=== PATIENT | male | born 1965 | race Two or more races ===

== ENCOUNTER 2024-11-13 09:58 | Outpatient (CLI) | payer OTHER, SELFPAY ==
--- OUTSIDE RECORDS SUMMARY | 2024-09-22 14:00 | XMS_ITS | Encounter Summary ---
[facility] Organization [facility] Address [address] [place] [address] Care Team Providers Care Gericare Aide Teacher Name Role Phone Denzel Barton MD Primary Care Provider [phone] Reason for Visit * Reason Comments Establish Care Had physical at [facility] a couple months ago. Encounter Details Date Type Department Care Team (Late st Contact Info) Description 09/22/2024 2:00 PM EDT Office Visit [facility] [address] [place] [address] [place] [id number] Denzel Barton MD [address] [place] [address] [place] [address] Class 1 obesity due to excess calories without serious comorbidity with body mass index (BMI) of 34.0 to 34.9 in adult (Primary Dx); Mixed hyperlipidemia; Essential hypertension; History of elevated PSA; Family history of colon cancer Social History Tobacco Use Types Packs/Day Years Used Date Smoking Tobacco: Never Smokeless Tobacco: Never Tobacco Cessation:Counseling Given: Not Answered Alcohol Use Standard Drinks/Week Comments Never 0 (1 standard drink = 0.6 oz pur e alcohol) PHQ-2 Answer Date Recorded Patient Health Questionnaire-2 Score 0 09/22/2024 Sex and Gender Information Value Date Recorded Sex Assigned at Male 10/18/2024 2:36 PM EDT Legal Sex Male 12:04 PM EDT Gender Identity Not on file Sexual Orientation Not on file documented as of this encounter Last Filed Vital Signs Vital Sign Reading Time Taken Comments Blood Pressure 120/78 09/22/2024 2:01 PM EDT Pulse 70 09/22/2024 1:45 PM EDT Temperature 37.3 C (99.1 F) 09/22/2024 1:45 PM EDT Respiratory Rate 18 09/22/2024 1:45 PM EDT Oxygen Saturation 97% 09/22/2024 1:45 PM EDT Inhaled Oxygen Concentration - - Weight 98.9 kg (218 lb) 09/22/2024 1:45 PM EDT Height 170.2 cm (5' 7 ) 09/22/2024 1:45 PM EDT Body Mass Index 34.14 09/22/2024 1:45 PM EDT documented in this encounter Functional Status documented as of this encounter Progress Notes * Denzel Barton MD - 09/22/2024 3:50 PM EDTAssociated Problem(s): Mixed hyperlipidemia I do not have previous records to verify but reported somewhat longstanding hyperlipidemia for which she is taking Crestor 20 mg daily with good tolerability. He reports last cholesterol sometime in early spring 2024 was good but we do not have the results. We request records from previous providerto verify details. Continue healthy diet, exercise and weight loss which she is currently pursuing.Monitor cholesterol at minimum yearly * Denzel Barton MD - 09/22/2024 3:50 PM EDTAssociated Problem(s): History of prostate cancer Patient reports a history of elevated PSA, he does not remember the details but it sounds like he had a biopsy with some radiation therapy in the last few years as of 09/22/2024, and has had multiple PSAs obtained subsequently which showed undetectable result. Clarify with retrieve old records when he would be due for follow-up likely with urology which would be typically yearly * Denzel Barton MD - 09/22/2024 3:48 PM EDTAssociated Problem(s): Family history of colon cancer Report family history of colon cancer in 2 paternal uncles, each in their early 40s. As such it sounds like the patient has had 2 colonoscopies with the most recent reported approximate 2022 which was negative, he is unsure what specific follow-up we will request records to verify but I would not expect based on family history but expect a follow-up in 3 to 5-year timeframe. Of note no bowel concerns. * Denzel Barton MD - 09/22/2024 3:46 PM EDTAssociated Problem(s): Essential hypertension Longstanding use of losartan/HCTZ 50/12.5 mg daily from previous physician, with reported normal electrolytes with blood work as obtained in the last couple months in early spring 2024, while he was at his previous primary provider, Dr. Jose Rafael Barreto in [facility]. No previous records to compare but will clarify and if never EKG obtained at next visit we will plan to obtain at that time. Nonetheless no chest pain palpitations or shortness of breath. Blood pressure continues in excellent range in clinic today and when he checks at home it is typically in the 110s to low 120s over 70s. Advise concerns * Denzel Barton MD - 09/22/2024 3:46 PM EDTAssociated Problem(s): Class 1 obesity due to excess calories without serious comorbidity with bodymass index (BMI) of 34.0 to 34.9 in adult Patient has had 2 months of stimulant therapy with phendimetrazine 35 mg at 2 tablets in the morning, as prescribed through previous provider Dr. Jose Rafael Carreno in [facility] before he moved [facility]. Weight prior to an onset was described as 250 pounds and is now 32 pounds down after the couple months with good response to medicine. Tolerating well without any jitteriness, anxiety trigger, his blood pressure continues to be good on the medicine. I have more typically use phentermine but a very similar medicine, and not discussed this would be used for typically 3 to potentially up to 4 months of therapy, although he was somewhat disappointed as he was hoping it could be used longer. I discussed that standard treatment and he is agreeable. As such refill provided for phendimetrazine tartrate 35 mg but I recommended transitioning to 1 tablet prior to breakfast and 1 tablet priorto lunch to get a bit of a more smooth effect during the day as he feels sometimes he is more hungry in the evening. Reinforced importance healthy diet, and regular exercise and we will follow-up in 1 month's time, we could do 1/4-month of therapy if still getting good response. I did additionally discussed GLP-1 class of medicine that we could consider in the future, although he is not sure of insurance coverage. Advise concerns. * Denzel Barton MD - 09/22/2024 2:00 PM EDT Images from the original note were not included. Office Note Name: Keegan Julian : 1965 Chief Complaint Establish Care (Had physical at previous doctors a couple months ago.) Subjective History of Present Illness: Keegan Julian is a 59 y.o. male who presents today for establishment of care and prolonged visit discussing most medical concerns. Regarding weight loss he was started a couple months ago just before he left his provider in [place] on phendimetrazine which is similar to phentermine and is a stimulant for weight loss. He has been taking 2 tablets daily with good benefit and describes having lost 32pounds in that timeframe as he has been eating less, and trying to have increase activity level especially as he is moved in last couple weeks now to [place]. He is doing well on the medicine, no jitteriness, though he also feels that maybe helps his energy somewhat. Unclear if that is just related to the weight loss. He also has high blood pressure, typically 110s to 120s over 70s, although we discussed with his weight loss we need to monitor closely as we might need to titrate down his dosing, but he is having no lightheadedness or dizziness. With hyperlipidemia pattern he is taking Crestor 20 mg daily and has tolerated well and describes his spring 2024 blood work from previous provider was in good range. He also has history of increased PSA with what sounds like a biopsy resulting inradiation therapy sometimes a few years ago with multiple PSAs since which have been undetectable and is having no urinary concerns. Will have to get records to verify details. He also has 2 uncles who had colon cancer in the early 40s and as such he had early colon cancer screening, at least 2 colonoscopies with reported most recent in about 2022 which was completely negative. We will clarify with requested records. Review of Systems Objective Past Medical History: Diagnosis Date Hyperlipidemia Hypertension History reviewed. No pertinent surgical history. History reviewed. No pertinent family history. Vital Signs BP 120/78 Pulse 70 Temp 99.1 ??F (37.3 ??C) (Temporal) Resp 18 Ht 170.2 cm (67 ) Wt 98.9 kg (218 lb) SpO2 97% BMI 34.14 kg/m?? Estimated body mass index is 34.14 kg/m?? as calculated from the following: Height as of this encounter: 170.2 cm (67 ). Weight as of this encounter: 98.9 kg (218 lb). Physical Exam Constitutional: General: He is not in acute distress. Appearance: Normal appearance. He is obese. He is not ill-appearing, toxic- appearing or diaphoretic. HENT: Right Ear: Tympanic membrane, ear canal and external ear normal. Left Ear: Tympanic membrane, ear canal and external ear normal. Nose: Nose normal. No rhinorrhea. Mouth/Throat: Mouth: Mucous membranes are moist. Pharynx: Oropharynx is clear. No oropharyngeal exudate or posterior oropharyngeal erythema. Neck: Vascular: No carotid bruit. Cardiovascular: Rate and Rhythm: Normal rate and regular rhythm. Pulses: Normal pulses. Heart sounds: Normal heart sounds. No murmur heard. No friction rub. No gallop. Pulmonary: Effort: Pulmonary effort is normal. No respiratory distress. Breath sounds: Normal breath sounds. No stridor. No wheezing. Abdominal: General: Abdomen is flat. Bowel sounds are normal. There is no distension. Palpations: Abdomen is soft. There is no mass. Tenderness: There is no abdominal tenderness. There is no guarding or rebound. Musculoskeletal: Cervical back: Neck supple. No tenderness. Right lower leg: No edema. Left lower leg: No edema. Lymphadenopathy: Cervical: No cervical adenopathy. Skin: General: Skin is warm and dry. Capillary Refill: Capillary refill takes less than 2 seconds. Findings: No rash. Neurological: General: No focal deficit present. Mental Status: He is alert and oriented to person, place, and time. Mental status is at baseline. Psychiatric: Mood and Affect: Mood normal. Behavior: Behavior normal. Thought Content: Thought content normal. POCT Results (if applicable): No results found for this or any previous visit. Assessment and Plan Diagnoses and all orders for this visit: 1. Class 1 obesity due to excess calories without serious comorbidity with body mass index (BMI) of34.0 to 34.9 in adult (Primary) Assessment & Plan: Patient has had 2 months of stimulant therapy with phendimetrazine 35 mg at 2 tablets in the morning, as prescribed through previous provider Dr. Jose Rafael Carreno in [facility] before he moved [facility]. Weight prior to an onset was described as 250 pounds and is now 32 pounds down after the couple months with good response to medicine. Tolerating well without any jitteriness, anxiety trigger, his blood pressure continues to be good on the medicine. I have more typically use phentermine but a very similar medicine, and not discussed this would be used for typically 3 to potentially up to 4 months of therapy, although he was somewhat disappointed as he was hoping it could be used longer. I discussed that standard treatment and he is agreeable. As such refill provided for phendimetrazine tartrate 35 mg but I recommended transitioning to 1 tablet prior to breakfast and 1 tablet priorto lunch to get a bit of a more smooth effect during the day as he feels sometimes he is more hungry in the evening. Reinforced importance healthy diet, and regular exercise and we will follow-up in 1 month's time, we could do 1/4-month of therapy if still getting good response. I did additionally discussed GLP-1 class of medicine that we could consider in the future, although he is not sure of insurance coverage. Advise concerns. Orders: - Phendimetrazine Tartrate 35 MG tablet; Take 1 tablet by mouth 2 (Two) Times a Day. Take 1 tablet prior to breakfast and 1 tablet prior to lunch by mouth daily Dispense: 60 each; Refill: 0 2. Mixed hyperlipidemia Assessment & Plan: I do not have previous records to verify but reported somewhat longstanding hyperlipidemia for which she is taking Crestor 20 mg daily with good tolerability. He reports last cholesterol sometime in early spring 2024 was good but we do not have the results. We request records from previous providerto verify details. Continue healthy diet, exercise and weight loss which she is currently pursuing.Monitor cholesterol at minimum yearly Orders: - rosuvastatin (CRESTOR) 20 MG tablet; Take 1 tablet by mouth Daily. Dispense: 90 tablet; Refill: 1 3. Essential hypertension Assessment & Plan: Longstanding use of losartan/HCTZ 50/12.5 mg daily from previous physician, with reported normal electrolytes with blood work as obtained in the last couple months in early spring 2024, while he was at his previous primary provider, Dr. Jose Rafael Barreto in [facility]. No previous records to compare but will clarify and if never EKG obtained at next visit we will plan to obtain at that time. Nonetheless no chest pain palpitations or shortness of breath. Blood pressure continues in excellent range in clinic today and when he checks at home it is typically in the 110s to low 120s over 70s. Advise concerns Orders: - losartan-hydrochlorothiazide (HYZAAR) 50-12.5 MG per tablet; Take 1 tablet by mouth Daily. Dispense: 90 tablet; Refill: 1 4. History of elevated PSA Assessment & Plan: Patient reports a history of elevated PSA, he does not remember the details but it sounds like he had a biopsy with some radiation therapy in the last few years as of 09/22/2024, and has had multiple PSAs obtained subsequently which showed undetectable result. Clarify with retrieve old records when he would be due for follow-up likely with urology which would be typically yearly 5. Family history of colon cancer Assessment & Plan: Report family history of colon cancer in 2 paternal uncles, each in their early 40s. As such it sounds like the patient has had 2 colonoscopies with the most recent reported approximate 2022 which was negative, he is unsure what specific follow-up we will request records to verify but I would not expect based on family history but expect a follow-up in 3 to 5-year timeframe. Of note no bowel concerns. Vaccine Counseling: Follow Up Return in about 1 month (around 10/22/2024) for Next scheduled follow up. Denzel Barton MD documented in this encounter Plan of Treatment Not on file documented as of this encounter Visit Diagnoses Diagnosis Class 1 obesity due to excess calories without serious comorbidity with body mass index (BMI) of 34.0 to 34.9 in adult- Primary Mixed hyperlipidemia Essential hypertension Unspecified essential hypertension History of elevated PSA Family history of colon cancer Family history of malignant neoplasm of gastrointestinal tract documented in this encounter Care Teams Gericare Aide Teacher Relationship Specialty Start Date End Date Denzel Barton MD [address] [place] [id number] PCP - General Internal Medicine 09/22/24 documented as of this encounter
--- OUTSIDE RECORDS SUMMARY | 2024-10-19 14:00 | XMS_ITS | Encounter Summary ---
Author Organization [facility] Address [address] [place] [address] Care Team Providers Care Nurse Assessor Name Role Phone Denzel Barton MD Primary Care Provider Reason for Referral * Consultation (Routine) - Authorized - Pending Scheduling Specialty Diagnoses / Procedures Referred By Lili t Referred To Contact Urology Diagnoses History of prostate cancer Procedures [place] OFFICE/OUTPATIENT NEW MODERATE MDM 45 MINUTES Denzel Barton MD [address] [place] [address] [place] [address] Phone: tel: fax: Mukund Salcedo MD [address] [place] [phone] Phone: tel: fax: Referral ID Status Reason Start Date Expiration Date Visits Requested Visits Authorized Authorized - Pending Scheduling Specialty Services Required 10/19/2024 01/18/2026 1 1 Reason for Visit * Reason Comments Primary Care Follow-Up Encounter Details Date Type Department Care Team (Late st Contact Info) Description 10/19/2024 2:00 PM EDT Office Visit [facility] [address] [place] [address] [place] [address] Denzel Barton MD [address] [place] [address] [place] [address] History of prostate cancer (Primary Dx); Migraine without aura and without status migrainosus, not intractable; Class 1 obesity due to excess calories without serious comorbidity with body mass index (BMI) of 34.0 to 34.9 in adult; Erectile dysfunction following radiation therapy; Mixed hyperlipidemia; Essential hypertension; Prediabetes Social History Tobacco Use Types Packs/Day Years Used Date Smoking Tobacco: Never Smokeless Tobacco: Never Tobacco Cessation:Counseling Given: Not Answered Alcohol Use Standard Drinks/Week Comments Not Currently 0 (1 standard drink = 0.6 oz [...] Sign Reading Time Taken Comments Blood Pressure 122/82 10/19/2024 1:47 PM EDT Pulse 80 10/19/2024 1:42 PM EDT Temperature 36.9 C (98.4 F) 10/19/2024 1:42 PM EDT Respiratory Rate 18 10/19/2024 1:42 PM EDT Oxygen Saturation 98% 10/19/2024 1:42 PM EDT Inhaled Oxygen Concentration - - Weight 99.3 kg (219 lb) 10/19/2024 1:42 PM EDT Height 170.2 cm (5' 7 ) 10/19/2024 1:42 PM EDT Body Mass Index 34.3 10/19/2024 1:42 PM EDT documented in this encounter Progress Notes * Denzel Barton MD - 10/19/2024 3:41 PM EDTAssociated Problem(s): Prediabetes Through previous provider records at visit 10/19/2024 he had notable most recent hemoglobin A1c of 6.2% on 07/25/2024. Reinforced importance of healthy diet, exercise and weight loss. Caution polyuria and polydipsia sign of progression of diabetes. Plan to recheck hemoglobin A1c when he follows up in3 months time, sooner as needed. * Denzel Barton MD - 10/19/2024 3:40 PM EDTAssociated Problem(s): Post-procedural erectile dysfunction Status post history of prostate cancer with radiation therapy with some resultant erectile difficulties, notably having normal testosterone per previous physician documentation in [place] and normal PSA. He did well on Cialis previously and will resume Cialis 10 mg daily for onset of sexual activity 30 to 60 minutes prior, with #9 and multiple refills provided. He had good response previous on this regimen and would expect continued good response but advised concerns. * Denzel Barton MD - 10/19/2024 3:40 PM EDTAssociated Problem(s): Mixed hyperlipidemia Verification of previous cholesterol labs from review of Records from [place], with most recent07/25/2024 total cholesterol 127, triglycerides 88, HDL 41 and LDL 68 which is excellent. Prior to that 2024 total cholesterol 153, triglycerides 151, HDL 51 and LDL 77. Continue Crestor 20 mg daily with good tolerability. Continue healthy diet, exercise and weight loss which she is currently pursuing. Plan to recheck cholesterol and he follows up in 3 months time with his complete physical. * Denzel Barton MD - 10/19/2024 3:38 PM EDTAssociated Problem(s): Migraine without aura and without status migrainosus, not intractable With review of previous provider documentation and notes on 10/19/2024 visit verified he has historyof some migraine headache without aura, although never typically requiring more than just jhtr-gcr-xwkluvu abortive therapy. There was discussion of adding Topamax at 05/05/2024 visit but he never did so. He describes a headache infrequently and does not require any prescription medicine at this time. Advised to worsen where we could reconsider treatment. * Denzel Barton MD - 10/19/2024 3:38 PM EDTAssociated Problem(s): History of prostate cancer Patient reports a history of elevated PSA, but ultimately I clarified that he had 2022 diagnosis ofprostate cancer which received radiation therapy and he subsequent get better. Most recent PSA documented from 2024 with a PSA of less than 0.04 and he reports having had multiple PSAs that hadundetectable result. Nonetheless ongoing recommendation per previous provider to follow-up with urology which it seems he had been hesitant with normal PSAs but I recommend following up with urology until he has been cleared from follow-up based on this history. I will refer back to urology locallyhere in [place]. * Denzel Barton MD - 10/19/2024 3:37 PM EDTAssociated Problem(s): Essential hypertension Longstanding use of losartan/HCTZ 50/12.5 mg daily from previous physician, with reported normal electrolytes with blood work as obtained in the last couple months in early spring 2024, while he was at his previous primary provider, Dr. Jose Rafael Barreto in [facility]. Plan to obtain EKG at follow-up visit for physical exam. Nonetheless no chest pain palpitations or shortness of breath. Blood pressure continues in excellent range in clinic today and when he checks at home it is typically in the 110s to low 120s over 70s. Advise concerns * Denzel Barton MD - 10/19/2024 3:36 PM EDTAssociated Problem(s): Class 1 obesity due to excess calories without serious comorbidity with bodymass index (BMI) of 34.0 to 34.9 in adult When evaluated initially 09/22/2024, patient described as 2 months of stimulant therapy with phendimetrazine 35 mg at 2 tablets in the morning, as prescribed through previous provider Dr. Jose Rafael Carreno in [facility] before he moved to [place]. He described about 30 pound weight loss over thepreceding couple months. Tolerating well without any jitteriness, anxiety trigger, his blood pressure continues to be good on the medicine. I have more typically use phentermine but a very similar medicine, and not discussed this would be used for typically 3 to potentially up to 4 months of therapy, and deception on 09/22/2024 refilled phendimetrazine tartrate 35 mg but I recommended transitioning to 1 tablet prior to breakfast and 1 tablet prior to lunch and he has been using but unfortunatelyweight has now stagnated. He would still like to try a fourth and final month of therapy and to discuss in the future we might consider reusing but this is not something he is chronically and regularly. Refill provided for phendimetrazine tartrate 35 mg at 1 tablet prior to breakfast and 1 tablet prior to lunch on 10/20/2024. I did additionally discussed GLP-1 class of medicine that we could consider in the future, although he is not sure of insurance coverage. Reassess how he is doing at follow-up visit 3 months, sooner as needed. * Denzel Barton MD - 10/19/2024 2:00 PM EDT Images from the original note were not included. Office Note Name: Keegan Julian : 1965 Chief Complaint Primary Care Follow-Up Subjective History of Present Illness: Keegan Julian is a 59 y.o. male who presents today for follow-up regarding multiple medical problemsapart also having previous physician records to verify other details. On review of records noted that he had excellent cholesterol profile as per assessment plan from 07/25/2024. Also had normal TSH, negative hepatitis C virus screening, reassuring CMP, normal CBC. Prior to that he had PSA less than0.04 with blood work on 2024. He does have some history of some increased liver function test. Regarding weight pattern his weight has stagnated since last visit on his stimulant medicine, he has been using, and we discussed the final month of therapy if you like to try it as this medicine is not designed for long-term use. Blood pressure checked infrequently at home but when he does it is in good range by report with no lightheadedness or dizziness. He has some history of migraine headache but he says he does generally well with gqes-xbd-sbyvthe treatment declines specific medication treatment. He has some history of rectal dysfunction especially after his radiation therapy for prosta te cancer and had used previous Cialis with benefit would like to resume. Prediabetic pattern also documented previous and we discussed importance healthy diet, exercise and weight loss which we are pursuing Review of Systems Objective Past Medical History: Diagnosis Date Hyperlipidemia Hypertension History reviewed. No pertinent surgical history. History reviewed. No pertinent family history. Vital Signs BP 122/82 Pulse 80 Temp 98.4 ??F (36.9 ??C) (Temporal) Resp 18 Ht 170.2 cm (67 ) Wt 99.3 kg (219 lb) SpO2 98% BMI 34.30 kg/m?? Estimated body mass index is 34.3 kg/m?? as calculated from the following: Height as of this encounter: 170.2 cm (67 ). Weight as of this encounter: 99.3 kg (219 lb). Physical Exam Constitutional: General: He is [...] No oropharyngeal exudate or posterior oropharyngeal erythema. Cardiovascular: Rate and Rhythm: Normal rate and regular rhythm. Pulses: Normal pulses. Heart sounds: Normal heart sounds. No murmur heard. No friction rub. No gallop. Pulmonary: Effort: Pulmonary effort is normal. No respiratory distress. Breath sounds: Normal breath sounds. No stridor. No wheezing. Abdominal: General: Abdomen is flat. Bowel sounds are normal. There is no distension. Palpations: Abdomen is soft. Tenderness: There is no abdominal tenderness. There is no guarding or rebound. Hernia: No hernia is present. Musculoskeletal: Cervical back: Neck supple. No tenderness. Right lower leg: No edema. Left lower leg: No edema. Lymphadenopathy: Cervical: No cervical adenopathy. Skin: General: Skin is warm and dry. Capillary Refill: Capillary refill takes less than 2 seconds. Neurological: General: No focal deficit present. Mental Status: He is alert and oriented to person, place, and time. Mental status is at baseline. Psychiatric: Mood and Affect: Mood normal. Behavior: Behavior normal. Thought Content: Thought content normal. POCT Results (if applicable): No results found for this or any previous visit. Assessment and Plan Diagnoses and all orders for this visit: 1. History of prostate cancer (Primary) Assessment & Plan: Patient reports a history of elevated PSA, but ultimately I clarified that he had 2022 diagnosis ofprostate cancer which received radiation therapy and he subsequent get better. Most recent PSA documented from 2024 with a PSA of less than 0.04 and he reports having had multiple PSAs that hadundetectable result. Nonetheless ongoing recommendation per previous provider to follow-up with urology which it seems he had been hesitant with normal PSAs but I recommend following up with urology until he has been cleared from follow-up based on this history. I will refer back to urology locallyhere in [place]. Orders: - Ambulatory Referral to Urology 2. Migraine without aura and without status migrainosus, not intractable Assessment & Plan: With review of previous provider documentation and notes on 10/19/2024 visit verified he has historyof some migraine headache without aura, although never typically requiring more than just txaj-dgi-yyltruy abortive therapy. There was discussion of adding Topamax at 05/05/2024 visit but he never did so. He describes a headache infrequently and does not require any prescription medicine at this time. Advised to worsen where we could reconsider treatment. 3. Class 1 obesity due to excess calories without serious comorbidity with body mass index (BMI) of34.0 to 34.9 in adult Assessment & Plan: When evaluated initially 09/22/2024, patient described as 2 months of stimulant therapy with phendimetrazine 35 mg at 2 tablets in the morning, as prescribed through previous provider Dr. Joes Rafael Carreno in [facility] before he moved to [place]. He described about 30 pound weight loss over thepreceding couple months. Tolerating well without any jitteriness, anxiety trigger, his blood pressure continues to be good on the medicine. I have more typically use phentermine but a very similar medicine, and not discussed this would be used for typically 3 to potentially up to 4 months of therapy, and deception on 09/22/2024 refilled phendimetrazine tartrate 35 mg but I recommended transitioning to 1 tablet prior to breakfast and 1 tablet prior to lunch and he has been using but unfortunatelyweight has now stagnated. He would still like to try a fourth and final month of therapy and to discuss in the future we might consider reusing but this is not something he is chronically and regularly. Refill provided for phendimetrazine tartrate 35 mg at 1 tablet prior to breakfast and 1 tablet prior to lunch on 10/20/2024. I did additionally discussed GLP-1 class of medicine that we could consider in the future, although he is not sure of insurance coverage. Reassess how he is doing at follow-up visit 3 months, sooner as needed. Orders: - Phendimetrazine Tartrate 35 MG tablet; Take 1 tablet by mouth 2 (Two) Times a Day. Take 1 tablet prior to breakfast and 1 tablet prior to lunch by mouth daily Dispense: 60 each; Refill: 0 4. Erectile dysfunction following radiation therapy Assessment & Plan: Status post history of prostate cancer with radiation therapy with some resultant erectile difficulties, notably having normal testosterone per previous physician documentation in [place] and normal PSA. He did well on Cialis previously and will resume Cialis 10 mg daily for onset of sexual activity 30 to 60 minutes prior, with #9 and multiple refills provided. He had good response previous on this regimen and would expect continued good response but advised concerns. Orders: - tadalafil (Cialis) 10 MG tablet; Take 1 tablet by mouth Daily As Needed for Erectile Dysfunction (use prior to sexual activity). Dispense: 9 tablet; Refill: 3 5. Mixed hyperlipidemia Assessment & Plan: Verification of previous cholesterol labs from review of Records from [place], with most recent07/25/2024 total cholesterol 127, triglycerides 88, HDL 41 and LDL 68 which is excellent. Prior to that 2024 total cholesterol 153, triglycerides 151, HDL 51 and LDL 77. Continue Crestor 20 mg daily with good tolerability. Continue healthy diet, exercise and weight loss which she is currently pursuing. Plan to recheck cholesterol and he follows up in 3 months time with his complete physical. 6. Essential hypertension Assessment & Plan: Longstanding use of losartan/HCTZ 50/12.5 mg daily from previous physician, with reported normal electrolytes with blood work as obtained in the last couple months in early spring 2024, while he was at his previous primary provider, Dr. Jose Rafael Barreto in [facility]. Plan to obtain EKG at follow-up visit for physical exam. Nonetheless no chest pain palpitations or shortness of breath. Blood pressure continues in excellent range in clinic today and when he checks at home it is typically in the 110s to low 120s over 70s. Advise concerns 7. Prediabetes Assessment & Plan: Through previous provider records at visit 10/19/2024 he had notable most recent hemoglobin A1c of 6.2% on 07/25/2024. Reinforced importance of healthy diet, exercise and weight loss. Caution polyuria and polydipsia sign of progression of diabetes. Plan to recheck hemoglobin A1c when he follows up in3 months time, sooner as needed. Vaccine Counseling: Follow Up Return in about 4 months (around 02/19/2025) for Annual physical. Denzel Barton MD documented in this encounter Plan of Treatment Not on file documented as of this encounter Visit Diagnoses Diagnosis History of prostate cancer- Primary Personal history of malignant neoplasm of prostate Migraine without aura and without status migrainosus, not intractable Class 1 obesity due to excess calories without serious comorbidity with body mass index (BMI) of 34.0 to 34.9 in adult Erectile dysfunction following radiation therapy Mixed hyperlipidemia Essential hypertension Unspecified essential hypertension Prediabetes Other abnormal glucose documented in this encounter Care Teams Nurse Assessor Relationship Specialty Start Date End Date Denzel Barton MD [address] [place] [address] [place] [id number] PCP - General Internal Medicine 09/22/24 documented as of this encounter
--- OUTSIDE RECORDS SUMMARY | 2024-11-13 10:02 | XMS_ITS | Encounter Summary ---
Author Organization [facility] Address [address] [place] [address] Care Team Providers Care Apparatus Cleaner Name Role Phone Denzel Barton MD Primary Care Provider [phone] Reason for Visit * Reason Onset Date Comments Med Refill 10/26/2024 Encounter Details Date Type Department Care Team (Late st Contact Info) Description 10/26/2024 Refill [facility] [address] [place] [address] [place] [address] Denzel Barton MD [address] [place] [address] [place] [address] Erectile dysfunction following radiation therapy Social History Tobacco Use Types Packs/Day Years Used Date Smoking Tobacco: Never Smokeless Tobacco: Never Alcohol Use Standard Drinks/Week Comments Not Currently 0 (1 standard drink = 0.6 oz pur e alcohol) PHQ-2 Answer Date Recorded Patient Health Questionnaire-2 Score 0 09/22/2024 Sex and Gender Information Value Date Recorded Sex Assigned at Male 10/18/2024 2:36 PM EDT Legal Sex Male 12:04 PM EDT Gender Identity Not on file Sexual Orientation Not on file documented as of this encounter Plan of Treatment Not on file documented as of this encounter Visit Diagnoses Diagnosis Erectile dysfunction following radiation therapy documented in this encounter Care Teams Apparatus Cleaner Relationship Specialty Start Date End Date Denzel Barton MD [address] [place] [address] [place] [address] PCP - General Internal Medicine 09/22/24 documented as of this encounter
--- OUTSIDE RECORDS SUMMARY | 2024-11-13 10:02 | XMS_ITS | Clinical Summary ---
Author Organization [facility] Address [address] [place] [address] Care Team Providers Care Printing Press Machinist Name Role Phone Denzel Barton MD Primary Care Provider [phone] Allergies No known active allergies Medications rosuvastatin (CRESTOR) 20 MG tabletIndications: Mixed hyperlipidemia Take 1 tablet by mouth Daily. 90 tablet 1 09/23/19 25 Active losartan-hydrochlo rothiazide (HYZAAR) 50-12.5 MG per tabletIndications: Essential hypertension Take 1 tablet by mouth Daily. 90 tablet 1 09/23/19 25 Active Phendimetrazine Tartrate 35 MG tabletIndications: Class 1 obesity due to excess calories without serious comorbidity with body mass index (BMI) of 34.0 to 34.9 in adult Take 1 tablet by mouth 2 (Two) Times a Day. Take 1 tablet prior to breakfast and 1 tablet prior to lunch by mouth daily 60 each 10/20/19 25 Active tadalafil (Cialis) 10 MG tabletIndications: Erectile dysfunction following radiation therapy Take 1 tablet by mouth Daily As Needed for Erectile Dysfunction (use prior to sexual activity). 9 tablet 3 10/27/19 25 Active Phendimetrazine Tartrate 35 MG tabletIndications: Class 1 obesity due to excess calories without serious comorbidity with body mass index (BMI) of 34.0 to 34.9 in adult Take 1 tablet by mouth 2 (Two) Times a Day. Take 1 tablet prior to breakfast and 1 tablet prior to lunch by mouth daily 60 each 09/23/19 25 025 Discontin ued(Reord er) tadalafil (Cialis) 10 MG tabletIndications: Erectile dysfunction following radiation therapy Take 1 tablet by mouth Daily As Needed for Erectile Dysfunction (use prior to sexual activity). 9 tablet 3 10/20/19 25 025 Discontin ued(Reord er) Active Problems Problem Noted Date Diagnosed Date Migraine without aura and wi thout status migrainosus, not intractable 10/19/2024 Assessment & Plan (10/19/2024 3:38 PM EDT): With review of previous provider documentation and notes on 10/19/2024 visit verified he has history of some migraine headache without aura, although never typically requiring more than just [id number] abortive therapy. There was discussion of adding Topamax at 05/05/2024 visit but he never did so. He describes a headache infrequently and does not require any prescription medicine at this time. Advised to worsen where we could reconsider treatment. Post-procedural erectile dysfunction 10/19/2024 Assessment & Plan (10/19/2024 3:40 PM EDT): Status post history of prostate cancer with [...] expect continued good response but advised concerns. Prediabetes 10/19/2024 Assessment & Plan (10/19/2024 3:41 PM EDT): Through previous provider records at visit 10/19/2024 he had notable most recent hemoglobin A1c of 6.2% on 07/25/2024. Reinforced importance of healthy diet, exercise and weight loss. Caution polyuria and polydipsia sign of progression of diabetes. Plan to recheck hemoglobin A1c when he follows up in 3 months time, sooner as needed. Class 1 obesity due to exces s calories without serious comorbidity with body mass index (BMI) of 34.0 to 34.9 in adult 09/22/2024 Assessment & Plan (10/19/2024 3:36 PM EDT): When evaluated initially 09/22/2024, patient described as 2 months of stimulant therapy with phendimetrazine 35 mg at 2 tablets in the morning, as prescribed through previous provider Dr. Jose Rafael Carreno in [facility] before he moved to [place]. He described about 30 pound weight loss over the preceding couple months. Tolerating well without any jitteriness, [...] lunch and he has been using but unfortunately weight has now stagnated. He would still like [...] follow-up visit 3 months, sooner as needed. Assessment & Plan (09/22/2024 3:46 PM EDT): Patient has had 2 months of stimulant therapy with phendimetrazine 35 mg at 2 tablets in the morning, as prescribed through previous provider Dr. Jose Rafael Carreno in [facility] before he moved to [place]. Weight prior to an onset was described [...] breakfast and 1 tablet prior to lunch to get a bit of a [...] not sure of insurance coverage. Advise concerns. Mixed hyperlipidemia 09/22/2024 Assessment & Plan (10/19/2024 3:40 PM EDT): Verification of previous cholesterol labs from review of [facility] Records from [place], with most recent 07/25/2024 total cholesterol 127, triglycerides 88, HDL 41 and LDL 68 which is excellent. Prior to that 2024 total cholesterol 153, triglycerides 151, HDL 51 and LDL 77. Continue Crestor 20 mg daily with good tolerability. Continue healthy diet, exercise and weight loss which she is currently pursuing. Plan to recheck cholesterol and he follows up in 3 months time with his complete physical. Assessment & Plan (09/22/2024 3:50 PM EDT): I do not have previous records to verify but reported somewhat longstanding hyperlipidemia for which she is taking Crestor 20 mg daily with good tolerability. He reports last cholesterol sometime in early spring 2024 was good but we do not have the results. We request records from previous provider to verify details. Continue healthy diet, exercise and weight loss which she is currently pursuing. Monitor cholesterol at minimum yearly Essential hypertension 09/22/2024 Assessment & Plan (10/19/2024 3:37 PM EDT): Longstanding use of losartan/HCTZ 50/12.5 mg daily from previous physician, with reported normal electrolytes with blood work as obtained in the last couple months in early spring 2024, while he was at his previous primary provider, Dr. Jose Rafael Barreto in [facility]. Plan to obtain EKG at follow-up visit for physical exam. Nonetheless no chest pain palpitations or shortness of breath. Blood pressure continues in excellent range in clinic today and when he checks at home it is typically in the 110s to low 120s over 70s. Advise concerns Assessment & Plan (09/22/2024 3:47 PM EDT): Longstanding use of losartan/HCTZ 50/12.5 mg daily from previous physician, with reported normal electrolytes with blood work as obtained in the last couple months in early spring 2024, while he was at his previous primary provider, Dr. Jose Rafael Barreto in [facility]. No previous records to compare but will clarify and if never EKG obtained at next visit we will plan to obtain at that time. Nonetheless no chest pain palpitations or shortness of breath. Blood pressure continues in excellent range in clinic today and when he checks at home it is typically in the 110s to low 120s over 70s. Advise concerns History of prostate cancer 09/22/2024 Assessment & Plan (10/19/2024 3:38 PM EDT): Patient reports a history of elevated PSA, but ultimately I clarified that he had 2022 diagnosis of prostate cancer which received radiation therapy and he subsequent get better. Most recent PSA documented from 2024 with a PSA of less than 0.04 and he reports having had multiple PSAs that had undetectable result. Nonetheless ongoing recommendation per previous provider to follow-up with urology which it seems he had been hesitant with normal PSAs but I recommend following up with urology until he has been cleared from follow-up based on this history. I will refer back to urology locally here in [place]. Assessment & Plan (09/22/2024 3:50 PM EDT): Patient reports a history of elevated PSA, [...] with urology which would be typically yearly Family history of colon cancer 09/22/2024 Assessment & Plan (09/22/2024 3:48 PM EDT): Report family history of colon cancer in 2 paternal uncles, each in their early 40s. As such it sounds like the patient has had 2 colonoscopies with the most recent reported approximate 2022 which was negative, he is unsure what specific follow- up we will request records to verify but I would not expect based on family history but expect a follow-up in 3 to 5-year timeframe. Of note no bowel concerns. Encounter for general adult medical examination with abnormal findings 09/22/2024 Overview (10/19/2024): For a patient of Dr. Carreno in [facility] with last screening blood work reportedly sometime in early spring 2024 when he had his last complete physical exam. Tdap vaccine believed to be given in the last few years as of 09/22/2024 visit but we will request records to verify. Colonoscopy x 2 or maybe 3 reported by patient related to strong family history of 2 uncles with colon cancer in the early 40s. Per review of previous physician records reveals a 2023 colonoscopy which was reassuring with 5-year repeat recommended. I cannot find the exact date of that but it is documented in the notes. Tdap vaccine reportedly given sometime in the last few years as of 09/22/2024, and he is unsure of pneumococcal vaccine status. We will clarify when he would get his records from previous provider Encounters Date Type Department Care Team Description 10/26/2024 Refill [facility] [address] [place] [address] [place] [phone] Denzel Barton MD Erectile dysfunction following radiation therapy 10/19/2024 2:00 PM EDT Office Visit [facility] [place] [address] Denzel Barton MD History of prostate cancer (Primary Dx); Migraine without aura and without status migrainosus, not intractable; Class 1 obesity due to excess calories without serious comorbidity with body mass index (BMI) of 34.0 to 34.9 in adult; Erectile dysfunction following radiation therapy; Mixed hyperlipidemia; Essential hypertension; Prediabetes 10/19/2024 Travel 09/22/2024 2:00 PM EDT Office Visit [facility] [place] [address] Denzel Barton MD Class 1 obesity due to excess calories without serious comorbidity with body mass index (BMI) of 34.0 to 34.9 in adult (Primary Dx); Mixed hyperlipidemia; Essential hypertension; History of elevated PSA; Family history of colon cancer 09/22/2024 Travel from Last 3 Months Social History Tobacco Use Types Packs/Day Years [...] on file Sexual Orientation Not on file Last Filed Vital Signs Vital Sign Reading [...] Mass Index 34.3 10/19/2024 1:42 PM EDT Plan of Treatment Health Maintenance Due Date Last Done Comments LIPID PANEL 1966 TDAP/TD VACCINES (1 - Tdap) 1985 COLOGUARD 2011 COLON CANCER SCREENING [address] COLONOGRAPHY 2011 FECAL OCCULT BLOOD TEST 2011 FIT Testing (1 year) 2011 Pneumococcal Vaccine 50+ (1 of 1 - PCV) 01/11/2016 ZOSTER VACCINE (1 of 2) 01/11/2016 COVID-19 Vaccine (1 - 2023- season) 2023 ANNUAL PHYSICAL 09/21/2024 INFLUENZA VACCINE 12/27/2024 COLONOSCOPY 03/29/2033 03/29/2023 COLORECTAL CANCER SCREENING 03/29/2033 HEPATITIS C SCREENING Completed 07/25/2024 [facility] Care Teams Printing Press Machinist Relationship Specialty Start Date End Date Denzel Barton MD [address] [place] [address] [place] [id number] PCP - General Internal Medicine 09/22/24
--- OUTSIDE RECORDS SUMMARY | 2024-11-13 10:02 | XMS_ITS | Encounter Summary ---
Author Organization [facility] Address [address] [place] [address] Care Team Providers Care Associate Professor Of Media Arts Name Role Phone Denzel Barton MD Primary Care Provider [phone] Encounter Details Date Type Department Care Team (Latest Contact Info) Description 09/22/2024 Travel Social History Tobacco Use Types Packs/Day Years Used Date Smoking Tobacco: Never Smokeless Tobacco: Never Alcohol Use Standard Drinks/Week Comments Never 0 (1 standard drink = 0.6 oz pur e alcohol) PHQ-2 Answer Date Recorded Patient Health Questionnaire-2 Score 0 09/22/2024 Sex and Gender Information Value Date Recorded Sex Assigned at Male 10/18/2024 2:36 PM EDT Legal Sex Male 12:04 PM EDT Gender Identity Not on file Sexual Orientation Not on file documented as of this encounter Functional Status documented as of this encounter Plan of Treatment Not on file documented as of this encounter Visit Diagnoses Not on filedocumented in this encounter Care Teams Associate Professor Of Media Arts Relationship Specialty Start Date End Date Denzel Barton MD [address] [place] [address] [place] [address] PCP - General Internal Medicine 09/22/24 documented as of this encounter
--- OUTSIDE RECORDS SUMMARY | 2024-11-13 10:02 | XMS_ITS | Encounter Summary ---
[facility] Organization [facility] Address [address] [place] [address] Care Team Providers Care Local Government Legislator Name Role Phone Denzel Barton MD Primary Care Provider [phone] Encounter Details Date Type Department Care Team (Latest Contact Info) Description 10/19/2024 Travel Social History Tobacco Use Types Packs/Day [...] on filedocumented in this encounter Care Teams Local Government Legislator Relationship Specialty Start Date End Date Denzel Barton MD [address] [place] [address] [place] [address] PCP - General Internal Medicine 09/22/24 documented as of this encounter
[2024-11-13 10:03] LABS: Microscopic, Urine URINE MICROSCOPIC (MICROSCOPIC)
[2024-11-13 10:33] LABS: Bilirubin,Urine Negative (Negative); Color,Urine YELLOW (Yellow); Glucose,Urine (UA) Negative (Negative); Ketones,Urine Negative (Negative); Leukocyte Esterase,Urine Negative (Negative); PH,Urine 6.0 (5.0-8.5); Protein,Urine Negative (Negative); Specific Gravity, Urine 1.025 (1.005-1.030); Urobilinogen,Urine 0.2 EU/dl (0.2)
[2024-11-13 10:43] LABS: Blood Urea Nitrogen 19 mg/dl (9-20); Creatinine,Serum 1.10 mg/dl (0.66-1.25); Estimated Glomerular Filt Rate 69 ml/min (>60); GFR (African American) 83 ML/MIN (>60)
[2024-11-14 00:25] LABS: Bacteria,Urine Trace /lpf
[2024-11-14 09:00] LABS: PSA, Free <0.02 ng/mL; Testosterone,Total 256 ng/dL (264-916)
== END 2024-11-13 23:59 | disposition home or self-care (01) ==
LOC: LAB 10:00
PROVIDERS: PCP Pediatrics; Visit Provider Urology
DX: C61 Malignant neoplasm of prostate (principal); N52.9 Male erectile dysfunction, unspecified
CPT/HCPCS: 36415; 81001; 82565; 84153; 84154; 84270; 84403; 84520

== ENCOUNTER 2024-12-04 09:47 | Outpatient (CLI) | payer OTHER, SELFPAY ==
--- OUTSIDE RECORDS SUMMARY | 2024-10-19 14:00 | XMS_ITS | Encounter Summary ---
Author Organization [facility] Address [address] [place] [address] Care Team Providers Care Tube Trailer Filler Name Role Phone Denzel Barton MD Primary Care Provider [phone] Reason for Referral * Consultation (Routine) - Closed Specialty Diagnoses / Procedures Referred By Contluis t Referred To Contact Urology Diagnoses History of prostate cancer Procedures CT OFFICE/OUTPATIENT NEW MODERATE MDM 45 MINUTES Denzel Barton MD [address] [place] [address] [place] [address] Phone: tel: fax: Mukund Salcedo MD [address] [place] [address] Phone: tel: fax: Referral ID Status Reason Start Date Expiration Date V isits Requested Visits Authorized [id number] Closed Specialty Services Required 10/19/2024 01/18/2026 1 1 Reason for Visit * Reason Comments Primary Care Follow-Up Encounter Details Date Type Department Care Team (Late st Contact Info) Description 10/19/2024 2:00 PM EDT Office Visit [facility] [address] [place] [address] [place] [id number] Denzel Barton MD [address] [place] [address] [place] [address] History of prostate cancer (Primary Dx); [...] normal testosterone per previous physician documentation in [place] and normal PSA. He did well on [...] cholesterol labs from review of Records from [place], with most recent07/25/2024 total cholesterol 127, triglycerides [...] although never typically requiring more than just iacc-jwf-rzzabzm abortive therapy. There was discussion of adding [...] will refer back to urology locallyhere in [place]. * Denzel Barton MD - 10/19/2024 3:37 PM EDTAssociated Problem(s): Essential hypertension Longstanding use of losartan/HCTZ 50/12.5 mg daily from previous physician, with reported normal electrolytes with blood work as obtained in the last couple months in early spring 2024, while he was at his previous primary provider, Dr. Jose Rafael Barreto in [facility]. Plan to obtain EKG at [...] previous provider Dr. Jose Rafael Carreno in [facility] before he moved to [place]. He described about 30 pound weight loss [...] he says he does generally well with tyzj-nys-nsdkyqc treatment declines specific medication treatment. He has [...] will refer back to urology locallyhere in [place]. Orders: - Ambulatory Referral to Urology 2. Migraine without aura and without status migrainosus, not intractable Assessment & Plan: With review of previous provider documentation and notes on 10/19/2024 visit verified he has historyof some migraine headache without aura, although never typically requiring more than just ihrd-tta-bpdukdl abortive therapy. There was discussion of adding [...] previous provider Dr. Jose Rafael Carreno in [facility] before he moved to [place]. He described about 30 pound weight loss [...] normal testosterone per previous physician documentation in [place] and normal PSA. He did well on [...] cholesterol labs from review of Records from [place], with most recent07/25/2024 total cholesterol 127, triglycerides [...] primary provider, Dr. Jose Rafael Barreto in [facility]. Plan to obtain EKG at [...] glucose documented in this encounter Care Teams Tube Trailer Filler Relationship Specialty Start Date End Date Denzel Barton MD [address] [place] [address] [place] [id number] PCP - General Internal Medicine 09/22/24 documented as of this encounter
--- OUTSIDE RECORDS SUMMARY | 2024-12-04 09:53 | XMS_ITS | Clinical Summary ---
Author Organization [facility] Address [address] [place] [address] Care Team Providers Care Meter Installer Name Role Phone Denzel Barton MD Primary Care Provider [phone] Allergies No known active allergies Medications rosuvastatin [...] prior to sexual activity). 9 tablet 3 11/30/19 25 Active tadalafil (Cialis) 10 MG tabletIndications: Erectile dysfunction following radiation therapy Take 1 tablet by mouth Daily As Needed for Erectile Dysfunction (use prior to sexual activity). 9 tablet 3 10/27/19 25 025 Discontin ued(Reord er) Active Problems Problem Noted Date Diagnosed Date Migraine without aura and wi thout status migrainosus, not intractable 10/19/2024 Assessment & Plan (10/19/2024 3:38 PM EDT): With review of previous provider documentation and notes on 10/19/2024 visit verified he has history of some migraine headache without aura, although never typically requiring more than just [id number] abortive therapy. There was discussion of adding [...] normal testosterone per previous physician documentation in [place] and normal PSA. He did well on [...] previous provider Dr. Jose Rafael Carreno in [facility] before he moved to [place]. He described about 30 pound weight loss [...] previous provider Dr. Jose Rafael Carreno in [facility] before he moved to [place]. Weight prior to an onset was described [...] cholesterol labs from review of Records from [place], with most recent 07/25/2024 total cholesterol 127, [...] primary provider, Dr. Jose Rafael Barreto in [facility]. Plan to obtain EKG at follow-up visit [...] primary provider, Dr. Jose Rafael Barreto in [facility]. No previous records to compare but will [...] refer back to urology locally here in [place]. Assessment & Plan (09/22/2024 3:50 PM EDT): [...] For a patient of Dr. Carreno in [facility] with last screening blood work reportedly sometime [...] Encounters Date Type Department Care Team Description 11/29/2024 Refill [facility] [address] [place] [address] [place] [phone] Denzel Barton MD Erectile dysfunction following radiation therapy 10/26/2024 Refill [facility] [address] [place] [address] [place] [address] Denzel Barton MD Erectile dysfunction following radiation therapy 10/19/2024 2:00 PM EDT Office Visit [facility] [address] [place] [address] [place] [address] Denzel Barton MD History of prostate cancer (Primary Dx); Migraine without aura and without status migrainosus, not intractable; Class 1 obesity due to excess calories without serious comorbidity with body mass index (BMI) of 34.0 to 34.9 in adult; Erectile dysfunction following radiation therapy; Mixed hyperlipidemia; Essential hypertension; Prediabetes 10/19/2024 Travel 09/22/2024 2:00 PM EDT Office Visit [facility] [address] [place] [address] [place] [phone] Denzel Barton MD Class 1 obesity due [...] 01/11/2016 ZOSTER VACCINE (1 of 2) 01/11/2016 ANNUAL PHYSICAL 09/21/2024 COVID-19 Vaccine (1 - 2023- season) 2024 INFLUENZA VACCINE 12/27/2024 COLONOSCOPY 03/29/2033 03/29/2023 COLORECTAL CANCER SCREENING 03/29/2033 HEPATITIS C SCREENING Completed 07/25/2024 Procedures Procedure Name Priority Date/Time Associated Diagnosis Comments SCANNED - LABS 11/13/2024 from Last 3 Months Results * LABS SCANNED (11/13/2024) us Denzel Barton MD LAB BLOOD ORDERABLES Final Resul t from Last 3 Months Insurance CIG OPEN ACCESS PLUS Care Teams Meter Installer Relationship Specialty Start Date End Date Denzel Barton MD [address] [place] [address] [place] [address] PCP - General Internal Medicine 09/22/24
--- OUTSIDE RECORDS SUMMARY | 2024-12-04 09:53 | XMS_ITS | Encounter Summary ---
Author Organization [facility] Address [address] [place] [address] Care Team Providers Care Pipe Coverer And Insulator Name Role Phone Denzel Barton MD Primary Care Provider [phone] Reason for Visit * Reason Onset Date Comments Med Refill 11/29/2024 Encounter Details Date Type Department Care Team (Late st Contact Info) Description 11/29/2024 Refill [facility] [address] [place] [address] [place] [address] Denzel Barton MD [address] [place] [address] [place] [address] Erectile dysfunction following radiation therapy Social [...] therapy documented in this encounter Care Teams Pipe Coverer And Insulator Relationship Specialty Start Date End Date Denzel Barton MD [address] [place] [address] [place] [address] PCP - General Internal Medicine 09/22/24 documented as of this encounter
--- OUTSIDE RECORDS SUMMARY | 2024-12-04 09:53 | XMS_ITS | Encounter Summary ---
[facility] Organization [facility] Address [address] [place] [address] Care Team Providers Care Forming Yardage Control Operator Name Role Phone Denzel Barton MD Primary Care Provider [phone] Encounter Details Date Type Department Care Team [...] on filedocumented in this encounter Care Teams Forming Yardage Control Operator Relationship Specialty Start Date End Date Denzel Barton MD [address] [place] [address] [place] [address] PCP - General Internal Medicine 09/22/24 documented as of this encounter
--- OUTSIDE RECORDS SUMMARY | 2024-12-04 09:53 | XMS_ITS | Encounter Summary ---
Author Organization [facility] Address [address] [place] [address] Care Team Providers Care Film Laboratory Technician Name Role Phone Denzel Barton MD Primary Care Provider [phone] Reason for Visit * Reason Onset Date Comments Med Refill 10/26/2024 Encounter Details Date Type Department Care Team (Late st Contact Info) Description 10/26/2024 Refill [facility] [address] [place] [address] [place] [address] Denzel Barton MD [address] [place] [address] [place] [address] Erectile dysfunction following radiation therapy Social [...] therapy documented in this encounter Care Teams Film Laboratory Technician Relationship Specialty Start Date End Date Denzel Barton MD [address] [place] [address] [place] [address] PCP - General Internal Medicine 09/22/24 documented as of this encounter
[2024-12-05 08:14] LABS: FSH 14.4 mIU/mL (1.5-12.4); LH 11.4 mIU/mL (1.7-8.6); Testosterone,Total 241 ng/dL (264-916)
== END 2024-12-04 23:59 | disposition home or self-care (01) ==
LOC: LAB 09:48
PROVIDERS: PCP Pediatrics; Visit Provider Urology
DX: C61 Malignant neoplasm of prostate (principal); N53.14 Retrograde ejaculation; N52.9 Male erectile dysfunction, unspecified
CPT/HCPCS: 36415; 82627; 82670; 83001; 83002; 84146; 84270; 84403